=== PATIENT | male | born 1975 | race Caucasian/White ===

== ENCOUNTER 2018-10-23 10:07 | Emergency (ER) | payer OTHER ==
[~2018-10-23] VITALS: Ht 175.3 cm; Wt 95.3 kg
[~2018-10-23 10:07] MED LIST: ASA81BEC PO; ATIVAN1 MG PO; KEFLEX500 M1 PO; NOHOMEMEDICATIONS; NORCO 5-325 TA1 EACH PO; ZOFRAN ODT4 MG PO
[2018-10-23 10:42] LABS: ABSOLUTE NEUTROPHILS 4.4 thou/uL (1.4-8.2); BASOPHILS 0.9 % (0.0-2.0); EOSINOPHILS 3.4 % (0.0-3.0); HEMATOCRIT 49.7 % (42.0-52.0); HEMOGLOBIN 16.8 gm/dL (14.0-18.0); MCH 31.1 pg (26.0-34.0); MCHC 33.9 g/dL (28.0-37.0); MCV 91.8 fL (80.0-100.0); MONOCYTES 8.5 % (1.0-8.0); PLATELET COUNT 223 thou/uL (150-400); POLYS 64.2 % (36.0-66.0); RBC 5.41 mil/uL (4.50-6.00); RDW 13.6 % (10.5-14.5); WBC 6.8 thou/uL (4.0-11.0)
[2018-10-23 10:51] LABS: ANION GAP 8 mmol/L (7-16); BUN 17 mg/dL (7-18); CALCIUM 9.1 mg/dL (8.5-10.1); CHLORIDE 102 mmol/L (98-107); CO2 28 mmol/L (21-32); GLUCOSE 122 mg/dL (74-106); POTASSIUM 4.1 mmol/L (3.5-5.1); SODIUM 138 mmol/L (136-145)
[2018-10-23 10:58] LABS: ALBUMIN 4.2 g/dL (3.4-5.0); SGOT 32 U/L (15-37); SGPT 80 U/L (30-65); TOTAL BILIRUBIN 1.4 mg/dL (<0.1-1.0); TOTAL PROTEIN 7.6 g/dL (6.4-8.2); TROPONIN-I <0.06 ng/mL (<0.06)
[2018-10-23 11:09] LABS: URINE BILIRUBIN NEGATIVE (Negative); URINE BLOOD NEGATIVE (Negative); URINE CLARITY CLEAR; URINE COLOR YELLOW; URINE GLUCOSE-RANDOM* NEGATIVE (Negative); URINE KETONES NEGATIVE (Negative); URINE LEUKOCYTES-REFLEX NEGATIVE (Negative); URINE NITRITE-REFLEX NEGATIVE (Negative); URINE PROTEIN (DIPSTICK) NEGATIVE (Negative); URINE SPECIFIC GRAVITY >= 1.030 (1.005-1.035); URINE UROBILINOGEN 0.2 E.U./dl (0.2-1.0)
[2018-10-23] MEDS ORDERED: MOBIC7.5 MG PO (11:19)
[2018-10-23 11:45] VITALS: BP 121/87
--- NOTE | 2018-10-23 15:55 | EKG ---
[place] [address] [facility] [place] [address] ELECTROCARDIOGRAM REPORT Name: MELANY STRAUSS [facility] [id number] ������������������ Admission: 10/23/18 ������������������ Attend Phys: Discharge: 10/23/18 ������������������ Date of : 71 Report #: [id number] ����������������������������������������������������������������� [id number] THIS REPORT FOR: //name// [facility] ED Test Date: 2018-10-23 Test Time: 10:17:48 Pat Name: MELANY STRAUSS Department: Room: Gender: M Clinical Business Analyst: SIMON : 1975 Requested By: Gely Luna Order Number: [id number] MD: Curry Muniz Measurements Intervals [place] Rate: 72 P: 40 [place]: 161 QRS: 19 QRSD: 95 T: 31 QT: 399 QTc: 437 Interpretive Statements Sinus rhythm Multiple ventricular premature complexes Borderline low voltage, extremity leads Compared to ECG 03/23/2016 17:47:52 Ventricular premature complex(es) now present Electronically Signed On 10-23-2018 15:55:00 BALLISTICIAN by Curry Muniz [email or web address] ��������������������������������������������� <ELECTRONICALLY SIGNED> ���������������������������������������� By: Curry Muniz MD ��������������������������������������������� 10/23/18 1555 [id number] Curry Muniz MD /SHARI
== END 2018-10-23 11:45 | disposition home or self-care (01) ==
LOC: ER 10:07
PROVIDERS: Nurse Practitioner Family
DX: R07.89 Other chest pain (principal); F41.9 Anxiety disorder, unspecified; Z88.8 Allergy status to other drugs, medicaments and biological substances

== ENCOUNTER 2018-10-25 23:45 | Emergency (ER) | payer OTHER ==
[~2018-10-25] VITALS: Ht 175.3 cm; Wt 95.3 kg
[~2018-10-25 23:45] MED LIST changes: +MOBIC7.5 MG PO
[2018-10-26 00:04] LABS: ABSOLUTE NEUTROPHILS 4.7 thou/uL (1.4-8.2); EOSINOPHILS 3.1 % (0.0-3.0); HEMOGLOBIN 15.6 gm/dL (14.0-18.0); LYMPHOCYTES 32.3 % (24.0-44.0); MCH 31.7 pg (26.0-34.0); MCHC 34.7 g/dL (28.0-37.0); MCV 91.3 fL (80.0-100.0); MONOCYTES 9.1 % (1.0-8.0); PLATELET COUNT 232 thou/uL (150-400); POLYS 54.5 % (36.0-66.0); RBC 4.93 mil/uL (4.50-6.00); RDW 13.5 % (10.5-14.5); WBC 8.7 thou/uL (4.0-11.0)
[2018-10-26 00:19] LABS: ANION GAP 10 mmol/L (7-16); BUN 21 mg/dL (7-18); CALCIUM 9.3 mg/dL (8.5-10.1); CHLORIDE 101 mmol/L (98-107); CO2 29 mmol/L (21-32); GLUCOSE 116 mg/dL (74-106); POTASSIUM 3.8 mmol/L (3.5-5.1); SODIUM 140 mmol/L (136-145); TROPONIN-I <0.06 ng/mL (<0.06)
[2018-10-26 00:42] VITALS: BP 148/97
--- NOTE | 2018-10-26 08:40 | EKG ---
[place] [address] [address] [facility] [place] [address] ELECTROCARDIOGRAM REPORT Name: MELANY STRAUSS [facility] [id number] ������������������ Admission: 10/25/18 ������������������ Attend Phys: Discharge: 10/26/18 ������������������ Date of : 71 Report #: [id number] ����������������������������������������������������������������� [id number] THIS REPORT FOR: //name// [facility] ED Test Date: 2018-10-25 Test Time: 23:52:58 Pat Name: MELANY STRAUSS Department: Room: Gender: Pathological Technician: pura : 1975 Requested By: Bony Correa Order Number: [id number] MD: Fredy Heart Measurements Intervals [place] Rate: 64 P: 38 [place]: 165 QRS: 26 QRSD: 89 T: 31 QT: 386 QTc: 399 Interpretive Statements Sinus rhythm Normal tracing Compared to ECG 10/23/2018 10:17:48 Ventricular premature complex(es) no longer present Electronically Signed On 10-26-2018 8:40:20 REAL ESTATE REPRESENTATIVE by Fredy Heart [email or web address] ��������������������������������������������� <ELECTRONICALLY SIGNED> ���������������������������������������� By: Fredy Heart MD, [facility] ��������������������������������������������� 10/26/18 0840 [id number] Fredy Heart MD, FACC /EPI
== END 2018-10-26 00:42 | disposition home or self-care (01) ==
LOC: ER 23:45
PROVIDERS: Emergency Medicine
DX: R07.89 Other chest pain (principal); F41.9 Anxiety disorder, unspecified; Z88.8 Allergy status to other drugs, medicaments and biological substances

== ENCOUNTER → 2020-07-14 | Outpatient (CLI) | payer OTHER | LOC: CAT 16:00 | PROVIDERS: ATTEND Family Medicine | DX: Z13.6 Encounter for screening for cardiovascular disorders (principal); E78.00 Pure hypercholesterolemia, unspecified; I25.10 Atherosclerotic heart disease of native coronary artery without angina pectoris ==

== ENCOUNTER → 2020-09-19 | Outpatient (CLI) | payer OTHER | LOC: ULTRA 09:49 | PROVIDERS: ATTEND Nurse Practitioner | DX: N44.2 Benign cyst of testis (principal); N50.89 Other specified disorders of the male genital organs ==